=== PATIENT | female | born 1955 | race Caucasian/White ===

== ENCOUNTER 2020-10-09 09:21 | Emergency (ER) | payer BC ==
[2020-10-09] MEDS ORDERED: Acetaminophen 325 MG Tab PO ONE (10:32)
[2020-10-09] MEDS ORDERED: Acetaminophen/HYDROcodone 325-5 MG Tab PO ONE (10:44)
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
--- NOTE | 2020-10-09 11:21 | CR ---
Right ankle: 4 views of the right ankle were obtained. Comparison: No prior ankle study is available. Mildly comminuted distal fibular diaphyseal fracture is seen showing slight angulation. Mildly displaced medial malleolus fracture is noted. Fracture is also felt to be present within the posterior malleolus which is not well seen. Small calcification is noted within the distal Achilles tendon at the calcaneus which appears to be incidental. Diffuse soft tissue swelling is present. Impression: 1. Distal fibular diaphyseal fracture, medial malleolus fracture and probable posterior malleolus fracture. 2. Diffuse soft tissue swelling. Diagnostic code #3
== END 2020-10-09 11:29 | disposition home or self-care (01) ==
LOC: JD.ED 09:21
DX: S82.841A Displaced bimalleolar fracture of right lower leg, initial encounter for closed fracture (principal); Z88.1 Allergy status to other antibiotic agents; W20.8XXA Other cause of strike by thrown, projected or falling object, initial encounter
CPT/HCPCS: 29515; 73610; 99283; A9270